=== PATIENT | male | born 1940 | race Caucasian/White ===

== ENCOUNTER → 2017-10-09 | Outpatient (CLI) | payer OTHER, MEDICARE | LOC: CIMAGING 11:01 | PROVIDERS: ATTEND Internal Medicine | DX: M25.552 Pain in left hip (principal); H91.90 Unspecified hearing loss, unspecified ear | CPT/HCPCS: 73502-PO ==

== ENCOUNTER → 2018-01-21 | Outpatient (CLI) | payer OTHER, MEDICARE | LOC: BHFA 13:30 | PROVIDERS: ATTEND Internal Medicine Cardiovascular Disease | DX: Z01.818 Encounter for other preprocedural examination (principal); I25.10 Atherosclerotic heart disease of native coronary artery without angina pectoris | CPT/HCPCS: 78452; 93017; A9500; J2785 ==

== ENCOUNTER → 2018-01-22 | Outpatient (CLI) | payer OTHER, MEDICARE | LOC: CIMAGING 11:13 | PROVIDERS: ATTEND Internal Medicine | DX: Z01.811 Encounter for preprocedural respiratory examination (principal); I51.7 Cardiomegaly | CPT/HCPCS: 36415-PO; 71046-PO ==

== ENCOUNTER 2018-01-29 10:38 | Observation (INO) | payer OTHER, MEDICARE ==
[2018-01-29] MEDS ORDERED: ceFAZolin 2 GM/DEXTROSE 100 ML IV ONE (11:57)
[2018-01-29] MEDS ORDERED: LIDOCAINE 1% 2 ML INJ ID PRN (11:57)
[2018-01-29] MEDS ORDERED: LR 1,000 ML IV ONE (11:57)
[2018-01-29] MEDS ORDERED: ACETAMINOPHEN 500 MG TAB PO ONE (11:57)
[2018-01-29] MEDS ORDERED: BUPIVACAINE 0.25% 30 ML SDV ONE (12:28)
[2018-01-29] MEDS ORDERED: THROMBIN (BOVINE) 20,000 UNIT VIAL TP ONE (12:28)
[2018-01-29] MEDS ORDERED: EPINEPHrine 1 MG/ML INJ ONE (12:28)
[2018-01-29] MEDS ORDERED: CHLORHEXIDINE GLUC HIBICLENS 118 ML BTL TP ONE (12:28)
[2018-01-29] MEDS ORDERED: BACITRACIN 50,000 UNITS/10 ML SYR IRR ONE (12:29)
--- NOTE | 2018-01-29 13:01 | PDANEPAE ---
ANE History of Present Illness patient presents for back surgery ANE Past Medical History - Cardiovascular History Hx Hypertension: Yes Hx Arrhythmias: No Hx Chest Pain: No Hx Coronary Artery / Peripheral Vascular Disease: Yes Hx CHF / Valvular Disease: No Hx Palpitations: No Cardiovascular History Comment: OHS 5. STENTS PLACED TO BYPASS GRAFT 2005 - Pulmonary History Hx COPD: No Hx Asthma/Reactive Airway Disease: No Hx Recent Upper Respiratory Infection: No Hx Oxygen in Use at Home: No Hx Sleep Apnea: No Sleep Apnea Screening Result - Last Documented: Positive - Neurologic History Hx Cerebrovascular Accident: No Hx Seizures: No Hx Dementia: No - Endocrine History Hx Diabetes: Yes Endocrine History Comment: TYPE 11 NIDDM - Renal History Hx Renal Disorders: No - Liver History Hx Hepatic Disorders: No - Neurological & Psychiatric Hx Hx Neurological and Psychiatric Disorders: Yes Neurological / Psychiatric History Comment: LEG MOVEMENT SPASM - Cancer History Hx Cancer: No - Congenital Disorder History Hx Congenital Disorders: No - GI History Hx Gastrointestinal Disorders: Yes Gastrointestinal History Comment: REFLUX - Other Health History Other Health History: RUNNY NOSE. DRY SKIN. CROWNS AND IMPLANTS - Chronic Pain History Chronic Pain: Yes (NECK PAIN) - Surgical History Prior Surgeries: OHS 2005 ANE Review of Systems Review of Systems: - Exercise capacity METS (RN): 4 METS ANE Patient History - Allergies Allergies/Adverse Reactions: amoxicillin Allergy (Verified 01/24/18 16:54) Other-Enter Comments NSAIDS (Non-Steroidal Anti-Inflamma Allergy (Verified 01/24/18 16:54) Other-Enter Comments - Home Medications Home medications: home medication list seen and reviewed Home Medications: Amlodipine Besylate 01/24/18 [Last Taken 01/28/18] Androgel 1% pump 01/24/18 [Last Taken 01/29/18] Carvedilol 01/24/18 [Last Taken 01/27/18] Losartan-Hctz 100-12.5 mg Tab 01/24/18 [Last Taken 01/29/18 06:00] Metformin HCl 01/24/18 [Last Taken 01/24/18] Pioglitazone HCl 01/24/18 [Last Taken 01/24/18] Ranitidine HCl 01/24/18 [Last Taken 01/29/18 06:00] Rosuvastatin Calcium 01/24/18 [Last Taken 01/24/18] - NPO status NPO Status: no food or drink >8 hours NPO Since - Liquids (Date): 01/28/18 NPO Since - Liquids (Time): 23:30 NPO Since - Solids (Date): 01/28/18 NPO Since - Solids (Time): 21:30 - Smoking Hx Smoking Status: Never smoked - Family Anes Hx Family Hx Anesthesia Complications: none ANE Labs/Vital Signs - Vital Signs Blood Pressure: 171/72 Heart Rate: 65 Respiratory Rate: 16 O2 Sat (%): 97 Height: 172.72 cm Weight: 77.111 kg ANE Physical Exam - Airway Neck exam: decreased ROM Mouth exam: normal dental/mouth exam - Pulmonary Pulmonary: no respiratory distress - Cardiovascular Cardiovascular: regular rate and rhythym - ASA Status ASA Status: III ANE Anesthesia Plan Anesthesia Plan: general endotracheal anesthesia Specialized Airway: video laryngoscope (rba discussed)
[2018-01-29] MEDS ORDERED: fentaNYL 100 MCG/2 ML INJ ONE ×2 (13:06→14:12)
[2018-01-29] MEDS ORDERED: PROPOFOL/EMULSION 500 MG/50 ML BOTTLE IV ONE (13:07)
[2018-01-29] MEDS ORDERED: REMIFENTANIL HCL 1 MG VIAL ONE (13:07)
[2018-01-29] MEDS ORDERED: ONDANSETRON 4 MG/2 ML VIAL ONE (13:07)
[2018-01-29] MEDS ORDERED: PROPOFOL 200 MG/20 ML VIAL ONE (13:07)
[2018-01-29] MEDS ORDERED: DEXAMETHASONE 4 MG/ML VIAL ONE (13:07)
--- NOTE | 2018-01-29 13:15 | PDHPUP ---
History & Physical Update H&P update statement: This history and physical update is based on an assessment of the patient which was completed after admission or registration (within 24 hours), but prior to the surgery/procedure. H&P update: H&P reviewed & patient examined, no change in patient's condition since H&P completed (Consents signed and site marked. All questions answered.)
[2018-01-29] MEDS ORDERED: SUCCINYLCHOLINE CHLORIDE 200 MG/10 ML SYR IVP ONE (13:23)
[2018-01-29] MEDS ORDERED: ePHEDrine SULFATE 25 MG/5 ML SYR ONE (13:48)
[2018-01-29] MEDS ORDERED: oxyCODONE IR 5 MG TAB PO PRN ×2 (14:30→14:51)
[2018-01-29] MEDS ORDERED: NALOXONE HCL 0.4 MG/ML INJ IVP PRN (14:30)
[2018-01-29] MEDS ORDERED: HYDROCODONE/APAP 5/325 TAB PO PRN (14:30)
[2018-01-29] MEDS ORDERED: LR 500 ML IV PRN (14:30)
[2018-01-29] MEDS ORDERED: ONDANSETRON 4 MG/2 ML VIAL IVP PRN ×2 (14:30→14:51)
[2018-01-29] MEDS ORDERED: fentaNYL 100 MCG/2 ML INJ IVP PRN (14:30)
[2018-01-29] MEDS ORDERED: POLYETHYLENE GLYCOL 3350 17 GM PKT PO PRN (14:51)
[2018-01-29] MEDS ORDERED: diphenhydrAMINE 25 MG CAP PO PRN (14:51)
[2018-01-29] MEDS ORDERED: MAGNESIUM HYDROXIDE 30 ML UDCUP PO PRN (14:51)
[2018-01-29] MEDS ORDERED: LACTULOSE 20 GM/30 ML UDCUP PO PRN (14:51)
[2018-01-29] MEDS ORDERED: BISACODYL 10 MG SUPP PR PRN (14:51)
[2018-01-29] MEDS ORDERED: HYDROmorphONE/DILAUDID 1 MG/ML INJ IVP PRN (14:51)
[2018-01-29] MEDS ORDERED: METHOCARBAMOL 750 MG TAB PO PRN (14:51)
[2018-01-29] MEDS ORDERED: ONDANSETRON DISINTEGRATING 4 MG TAB PO PRN (14:51)
--- NOTE | 2018-01-29 14:58 | POSTOPPROG ---
Post Op Note Date of Operation: 01/29/18 Surgeon: Genia Hyatt Steam Tank Operator: Kayleen Hyatt PA-C Anesthesiologist: Reagan Anesthesia: GET(General Endotracheal) Pre-op Diagnosis: lumbar stenosis Post-op Diagnosis: same Indication: nerve compression Procedure: L4/5 hemilaminectomy and decompression Findings: nerve compression Inf/Abcess present in the surg proc area at time of surgery?: No Depth: Organ Space EBL: Minimal Complications: none Specimen(s): none PA Addendum - Addendum .: S: Pt awake in PACU, denies pain O: Sleepy but awakens easily NAD VSS MAEx4 Motor 5/5 BUE/BLE +LT Incision dressed cdi A: 77 yo M s/p L4/5 hemilaminectomy and decompression P: PT/OT Pain management Spine precautions TEDs, SCDs, lovenox 24 hrs post op Admit to obs due to cardiac issues, likely DC in am D/w Dr Esquivel Call NS with any issues
[2018-01-29] MEDS ORDERED: NS 1,000 ML IV SCH (15:00)
--- NOTE | 2018-01-29 15:04 | POSTANESTH ---
Post Anesthetic Evaluation Cardiovascular Status: Similar to Pre-Op Cond Respiratory Status: Similar to Pre-op Cond. Level of Consciousness/Mental Status: Mildly Sleepy, Arousable Pain Control: Adequate, Prn Tx Ordered Nausea/Vomiting Control: Adequate, Prn Tx Ordered Complications Possibly Related to Anesthesia: None Noted
--- NOTE | 2018-01-29 17:21 | GOP ---
[f rep st] OPERATIVE REPORT DATE OF OPERATION: 01/29/2018 SURGEON: Triston Esquivel MD PLASTERER HELPER: FRANCES Mathews ANESTHESIA: General. PREOPERATIVE DIAGNOSIS: 1. L4-5 lumbar stenosis with left lower extremity radiculopathy. 2. Treatment refractory to nonoperative intervention. POSTOPERATIVE DIAGNOSIS: 1. L4-5 lumbar stenosis with left lower extremity radiculopathy. 2. Treatment refractory to nonoperative intervention. PROCEDURE PERFORMED: 1. Left-sided L4-L5 hemilaminotomy with mesial facetectomy and lateral recess decompression with central decompression. 2. Use of intraoperative fluoroscopy, less than 1 hour physician time. 3. Use of neuromonitoring. 4. Use of operating microscope. FINDINGS: per imaging SPECIMENS: None. ESTIMATED BLOOD LOSS: 20 cc. INDICATIONS: The patient is a 77-year-old gentleman who has unfortunately suffers from left lower extremity radiculopathy with claudicatory symptoms. He had evidence of severe spinal stenosis L4-L5. After discussion of the risks, benefits, and alternatives. After failing nonoperative intervention, we decided to proceed forth with surgery as described above. DESCRIPTION OF PROCEDURE: The patient was brought to operating theater and underwent general endotracheal anesthesia without complications. He had Venodynes, HUMPHREY hose, and the appropriate lines placed by Anesthesia. He was flipped prone on the Veto frame, and all bony processes inspected and padded. The lower lumbar region was prepped and draped in usual sterile surgical fashion. A time-out was completed per protocol, and the patient received antibiotics within 1 hour of incision. Using lateral fluoroscopy and a spinal needle, we picked our entry point to the L4-L5 level. This was marked in the midline and the incision infiltrated with Marcaine with epinephrine. The incision was taken down with the scalpel blade and using monopolar, taken down the midline to the lumbodorsal fascia to the left side of the L4-L5 interlaminar space. Deep retractors were placed to maintain exposure. We confirmed our level using lateral fluoroscopy. The microscope was brought into the field to assist with microscopic dissection and to maintain illumination and magnification. Using a combination of bur tip on the drill bit and Kerrison punches, we completed a left-sided L4-5 hemilaminotomy with mesial facetectomy and lateral recess decompression. We also resected the ligamentum flavum and reached crossed the midline with the banana Kerrison and completed a central decompression. We complete this cranial and caudally until we felt that we decompressed the stenotic levels that was compared to his MRI scan. Once this was completed, we obtained hemostasis with the bipolar. The wound was irrigated copiously with bacitracin irrigation. We then closed the wound in multiple layers, including Vicryl sutures deep layers and Dermabond for the skin. Patient's wounds were dressed sterilely. He was flipped supine onto the transfer cart, where he was awakened, extubated, and taken to recovery room in stable condition. There were no complications and no noted changes on neuromonitoring throughout the procedure. COMPLICATIONS: None. /[id number]/MODL MTDD
[2018-01-29] MEDS: SENNOSIDES/DOCUSATE SODIUM TAB PO SCH (20:47)
[2018-01-29] MEDS: FAMOTIDINE 20 MG TAB PO SCH (20:47)
[2018-01-29] MEDS: ACETAMINOPHEN 500 MG TAB PO SCH (23:34)
[2018-01-30] MEDS: ACETAMINOPHEN 500 MG TAB PO SCH (06:39)
--- NOTE | 2018-01-30 07:47 | NEUSURGPN ---
Date of Surgery: 01/29/18 Post Op Day: 1 Assessment/Plan: Assessment: 77 yo M s/p L4/5 hemilaminectomy and decompression POD #1 Plan: -s/p lumbar decompression: Pt states that his pain is better and his legs feel "great" -will work with PT/OT this am and likely dc if they clear -dc pended clearance for therapies and RN -continue with current pain management -call with any questions or concerns -TEDs, SCDs, lovenox 24 hrs post op if not ambulation well -was admitted to obs due to cardiac issues-did "fine" overnight per DORYS Jimenes -d/w Dr Esquivel -call NS with any issues -warning signs given Subjective: Awake and alert. No new complaints. Doing well this am. No omalley/neck/chest/abd or gu complaints. No f/c/n/v/d. Objective: AAO x 3, PERRLA/EOMI no droop NAD AFVSS MAEx4 Motor 5/5 BUE/BLE = +LT Incision dressed CDI Neuro Check Frequency: per routine Urinary Catheter in Place: No - Physician Discussed Patient with : [facility] Physical Exam - Vitals, I&O, Labs I and O 01/29/18 01/30/18 01/31/18 05:59 05:59 05:59 Intake Total 250 Output Total 580 Balance -330 Weight 77.111 kg Intake: Oral (ml) 250 Output: Urine (ml) 570 Urinal 570 Estimated Blood Loss (ml) 10 Other: Number of Voids Urinal 1 Vital Signs Temp Pulse Resp BP Pulse Ox 36.6 C 62 16 132/65 H 95 01/30/18 07:35 01/30/18 07:35 01/30/18 07:35 01/30/18 07:35 01/30/18 07:35 ICD10 Worksheet Patient Problems: Problems Problem Status Onset Lumbar stenosis Acute - ICD10 Problem Qualifiers (1) Lumbar stenosis
[2018-01-30] MEDS: FAMOTIDINE 20 MG TAB PO SCH (08:09)
[2018-01-30] MEDS: SENNOSIDES/DOCUSATE SODIUM TAB PO SCH (08:09)
[2018-01-30] MEDS ORDERED: HYDROCORTISONE 1% CREAM TP PRN (08:45)
[2018-01-30] MEDS ORDERED: VITAMIN B COMPLEX 1 EA CAP/TAB PO SCH (09:00)
[2018-01-30] MEDS ORDERED: CARVEDILOL 25 MG TAB PO SCH (09:00)
[2018-01-30] MEDS ORDERED: Herbals/Supplements -Info Only PO SCH (09:00)
[2018-01-30] MEDS ORDERED: TESTOSTERONE 1.62% TP SCH (09:00)
[2018-01-30] MEDS ORDERED: LOSARTAN POTASSIUM 50 MG TAB PO SCH (09:00)
[2018-01-30] MEDS ORDERED: LOSARTAN PO SCH (09:00)
[2018-01-30] MEDS ORDERED: [UNRECOGNIZED DRUG - OTHER] PO SCH (09:00)
[2018-01-30] MEDS ORDERED: CHOLECALCIFEROL VIT D3 1,000 UNITS TAB PO SCH (09:00)
[2018-01-30] MEDS ORDERED: HYDROCHLOROTHIAZIDE PO SCH (09:00)
[2018-01-30] MEDS ORDERED: LOSARTAN/HCTZ 50/12.5 1 TAB PO SCH (09:00)
[2018-01-30] MEDS ORDERED: PRESERVISION AREDS2 FORMULA EYE VIT 1 EACH PO SCH (09:00)
[2018-01-30] MEDS ORDERED: PIOGLITAZONE HCL 15 MG TAB PO SCH (09:45)
[2018-01-30] MEDS ORDERED: IPRATROPIUM 0.06% NASAL SPRAY EACHNARE SCH (10:00)
[2018-01-30 10:51] VITALS: BP 139/56
[2018-01-30] MEDS ORDERED: PYRIDOXINE HCL 100 MG TAB PO SCH (12:00)
[2018-01-30] MEDS ORDERED: CYANO/VITAMIN B12 1000 MCG TAB PO SCH (12:00)
[2018-01-30] MEDS ORDERED: metFORMIN SR 500 MG TAB PO SCH (12:00)
--- NOTE | 2018-01-30 13:42 | ASMTCMCOM ---
CM Note CM Note Notes: PT rec home. Pt medically stable for d/c, no CM d/c needs identified. Date Signed: 01/30/2018 01:42 PM Electronically Signed By:IBRAHIMA Friedman
--- NOTE | 2018-01-30 13:42 | ASMTLACE ---
LACE Length of stay for Answers: 2 days current admission Acuity / Level of Answers: No Care: Did the patient have an inpatient admission? Comorbidities - select Answers: Coronary Artery Disease all that apply Diabetes (uncontrolled or controlled) Opioid dependence / Chronic pain Other Notes: HTN # of Emergency department Answers: 0 visits in the last 6 months Score: 10 Date Signed: 01/30/2018 01:41 PM Electronically Signed By:IBRAHIMA Friedman
[2018-01-30] MEDS ORDERED: ENOXAPARIN 40 MG/0.4 ML SYR SC SCH (14:00)
[2018-01-30] MEDS ORDERED: ROSUVASTATIN CALCIUM 10 MG TAB PO SCH (21:00)
[2018-01-30] MEDS ORDERED: MELATONIN 3 MG TAB PO SCH (21:00)
[2018-01-31] MEDS ORDERED: FAMOTIDINE 20 MG TAB PO SCH (07:00)
--- NOTE | 2018-02-12 13:20 | GDS ---
[f rep st] DISCHARGE SUMMARY ADMITTING DIAGNOSIS: Lumbar stenosis. DISCHARGE DIAGNOSIS: Status post L4-5 hemilaminectomy and decompression. CONSULTS: Physical Therapy, Occupational Therapy. DISPOSITION: Home. HOSPITAL COURSE: The patient is a 77-year-old patient who was seen in Dr. Esquivel's clinic as an outp atient. He had lumbar stenosis at the L4-5 level with symptoms including left lower extremity radicu lopathy and claudicatory symptoms. He tried and failed conservative management and after careful con sideration, elected to proceed with surgery in the way of left-sided L4-5 hemilaminotomy with lateral recess decompression and central decompression. The procedure was performed by Dr. Esquivel for which there were no known complications. Please see his operative report for further details. After the operation, the patient was in stable condition and was transferred to the operating room to the PACU and from the PACU to the postsurgical floor. While on the floor, the patient received physical thera py, occupational therapy, and pain management. On postop day #1, the patient's pain was well managed . He was cleared by therapies, and he was subsequently discharged to home. DISCHARGE INSTRUCTIONS: Diet: As tolerated. Activity: No bending, lifting, or twisting. The aneesh ent to keep his incision clean and dry. MEDICATIONS: Please see the medication reconciliation. FOLLOWUP: The patient has been asked to follow up with Dr. Esquivel in the office in approximately 2-3 weeks. We have asked the patient to call sooner with any questions or concerns at [phone]. /[id number]/MODL
--- NOTE | 2018-02-12 13:35 | GPROG ---
[f rep st] CONSULTATION This is to dictate the order for discharge for this patient. /[id number]/MODL
== END 2018-01-30 11:34 | disposition home or self-care (01) ==
LOC: FSGY 10:38 → F3N 14:51
PROVIDERS: ADMIT Neurological Surgery; ATTEND Neurological Surgery
PROC: 0SB20ZZ Excision of Lumbar Vertebral Disc, Open Approach (ICD-10-PCS; principal; 2018-01-29 13:15)
PROC: 00NY0ZZ Release Lumbar Spinal Cord, Open Approach (ICD-10-PCS; principal; 2018-01-29 13:15)
DX: M48.062 Spinal stenosis, lumbar region with neurogenic claudication (principal)
CPT/HCPCS: 63030; 76001; 97116; 97161; 97165; 97535; G8978; G8979; G8980; G8987; G8988; G8989; J0171; J0330; J0690; J1100; J2405; J2704; J3010; 80069-PO; 80076-PO

== ENCOUNTER 2018-03-05 14:22 | Observation (INO) | payer OTHER, MEDICARE ==
--- NOTE | 2018-03-05 14:50 | CPEKG ---
Test Reason : OPEN Blood Pressure : / mmHG Vent. Rate : 059 BPM Atrial Rate : 059 BPM P-R Int : 188 ms QRS Dur : 086 ms QT Int : 434 ms P-R-T Axes : 026 019 151 degrees QTc Int : 430 ms Sinus rhythm Low voltage, extremity leads Abnormal T, consider ischemia, lateral leads Confirmed by Jose Carlos Boykin ([id number]) on 03/05/2018 2:50:17 PM Referred By: Confirmed By:Jose Carlos Boykin
[2018-03-05] MEDS ORDERED: FUROSEMIDE 40 MG/4 ML VIAL IVP ONE (14:58)
--- NOTE | 2018-03-05 15:02 | EDPHY ---
H & P Stated Complaint: bypass surg 01/29 cva 02/02 increasing fluid retention with sob with exertion Time Seen by Provider: 03/05/18 14:44 HPI/ROS: CHIEF COMPLAINT: Shortness of breath HISTORY OF PRESENT ILLNESS: The patient is a 77-year-old man who comes to the emergency department complaining of shortness of breath with exertion and mild orthopnea. He has a history of 5 vessel CABG and mild CHF. 1 month ago he had a lumbar laminectomy and his a Plavix was held. 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 He was treated at [facility] with perfusion therapy. He was not eligible for tPA or intra-arterial lysis. Because of the perfusion therapy they discontinued his losartan/ hydrochlorothiazide. His stroke improved and he was discharged but his medication was not resumed. He states that over the last couple of weeks he has gained 2 lb and has swelling in his legs and shortness of breath with exertion. No fever or cough. No chest pain. He also has a history of diabetes. His wind operations manager is Dr. Reji Ochoa and his primary is Dr. Tim York. He presented to the cardiology office today to have his loop recorder evaluated and was planning to ask about the medications but unfortunately the wind operations manager was not in the office. Severity: Mild Modifying factors: Exertion , lying flat REVIEW OF SYSTEMS: Constitutional: denies: chills, fever, recent illness, recent injury EENTM: denies: blurred vision, double vision, nose congestion Respiratory: See HPI denies: cough Cardiac: denies: chest pain, irregular heart rate, lightheadedness, palpitations Gastrointestinal/Abdominal: denies: abdominal pain, diarrhea, nausea, vomiting, blood streaked stools Genitourinary: denies: dysuria, frequency, hematuria, pain Musculoskeletal: denies: joint pain, muscle pain Skin: denies: lesions, rash, jaundice, bruising Neurological: denies: headache, numbness, paresthesia, tingling, dizziness, weakness Hematologic/Lymphatic: denies: blood clots, easy bleeding, easy bruising Immunologic/allergic: denies: HIV/AIDS, transplant EXAM: GENERAL: Well-appearing, well-nourished and in no acute distress. HEAD: Atraumatic, normocephalic. EYES: Pupils equal round and reactive to light, extraocular movements intact, sclera anicteric, conjunctiva are normal. ENT: TMs normal, nares patent, oropharynx clear without exudates. Moist mucous membranes. NECK: Normal range of motion, supple without lymphadenopathy or JVD. LUNGS: Breath sounds her with mild crackles to auscultation bilaterally and equal. No wheezes rales or rhonchi. HEART: Regular rate and rhythm without murmurs, rubs or gallops. ABDOMEN: Soft, nontender, normoactive bowel sounds. No guarding, no rebound. No masses appreciated. BACK: No CVA tenderness, no spinal tenderness, step-offs or deformities EXTREMITIES: The 1+ lower extremity edema, Normal range of motion. No clubbing or cyanosis. NEUROLOGICAL: Cranial nerves II through XII grossly intact. Normal speech, normal gait. 5/5 strength, normal movement in all extremities, normal sensation , normal reflexes PSYCH: Normal mood, normal affect. SKIN: Warm, dry, normal turgor, no visible rashes or lesions. Source: Patient Exam Limitations: No limitations - Personal History Current Tetanus Diphtheria and Acellular Pertussis (TDAP): Yes - Medical/Surgical History Hx Asthma: No Hx Chronic Respiratory Disease: No Hx Diabetes: Yes Hx Cardiac Disease: Yes Hx Renal Disease: No Hx Cirrhosis: No Hx Alcoholism: No Hx HIV/AIDS: No Hx Splenectomy or Spleen Trauma: No Other PMH: CABG with 5 stents, HTN, DM, cva has loop monitor - Family History Significant Family History: No pertinent family hx - Social History Smoking Status: Never smoked Alcohol Use: Sober Drug Use: None Constitutional: Initial Vital Signs Temperature (C) 36.4 C 03/05/18 14:26 Heart Rate 65 03/05/18 14:26 Respiratory Rate 18 03/05/18 14:26 Blood Pressure 155/79 H 03/05/18 14:26 O2 Sat (%) 95 03/05/18 14:26 O2 Delivery Mode Room Air Allergies/Adverse Reactions: amoxicillin Allergy (Verified 03/05/18 14:23) Other-Enter Comments NSAIDS (Non-Steroidal Anti-Inflamma Allergy (Verified 03/05/18 14:23) Other-Enter Comments Home Medications: Medication Instructions Recorded Androgel 1.62% 1 nghia TP DAILY 01/29/18 C,E,Zinc,Copper 11/Gnbrf5s/Lut 1 each PO DAILY 01/29/18 [Ocuvite Adult 50 Plus Softgel] Carvedilol [Coreg] 12.5 mg PO BID 01/29/18 Cholecalciferol Vit D3 [Vitamin D3 1,000 units PO DAILY 01/29/18 (*)] Cyanocobalamin [Vitamin B12 (*)] 1,000 mcg PO DAILY@01/29/18 Herbals/Supplements -Info Only 1 ea PO DAILY 01/29/18 Ipratropium 0.06% Nasal [Atrovent 1 sprays EACHNARE DAILY@01/29/18 0.06% Nasal] Melatonin [Melatonin 3 MG (*)] 3 mg PO DAILY@01/29/18 Pyridoxine HCl [Vitamin B-6 100 mg 100 mg PO DAILY@01/29/18 (*)] Rosuvastatin Calcium [Crestor] 10 mg PO HS 01/29/18 Vitamin B Complex [Vitamin B 1 each PO DAILY 01/29/18 Complex (OTC)] amLODIPine BESYLATE [Norvasc 2.5 2.5 mg PO HS 01/29/18 mg (*)] metFORMIN SR [Glucophage XR 500 mg 500 mg PO QID 01/29/18 (*)] Acetaminophen [Tylenol ES 500 mg 1,000 mg PO Q8HRS tab 01/30/18 (*)] Aspirin EC [Aspirin EC 81 mg (*)] 81 mg PO TID 02/19/18 Clopidogrel Bisulfate [Clopidogrel] 75 mg PO DAILY 02/19/18 Losartan Potassium 100 mg PO DAILY 03/05/18 Hydrochlorothiazide [HCTZ (*)] 12.5 mg PO DAILY #30 tab 03/06/18 Medical Decision Making - Diagnostics EKG Interpretation: An EKG obtained and was read and documented in trace view. Please see trace view for full reading and report. Sinus rhythm, no acute ischemic changes, T- wave inversion laterally no previous for comparison Imaging: Discussed imaging studies w/ physically impaired teacher Radiologist ED Course/Re-evaluation: 4:00 p.m. the patient is feeling slightly better. He is ambulating to the bathroom. I discussed his case with Dr. Burden who is on-call for Dr. Ochoa. He would prefer the patient be admitted to the hospital for diuresis and observation. Patient and family understand and agree with this plan. Differential Diagnosis: Partial list of the Differential diagnosis considered include but were not limited to; CHF exacerbation, pleural effusion, pericardial effusion and although unlikely based on the history and physical exam, I also considered acute coronary disease, PE. I discussed these differential diagnoses and the plan with the patient as well as the usual and expected course. The patient understands that the diagnosis is provisional and that in medicine we are not always correct and that further workup is often warranted. Usual and customary warnings were given. All of the patient's questions were answered. The patient was instructed to return to the emergency department should the symptoms at all worsen or return, otherwise to followup with the physician as we discussed. - Data Points Laboratory Results: Laboratory Results 03/05/18 14:35 03/05/18 14:35 Medications Given: Discontinued Medications Acetaminophen (Tylenol) 1,000 mg PO Q8HRS ROSELINE Stop: 09/01/18 21:59 Last Admin: 03/06/18 08:29 Dose: Not Given Amlodipine Besylate (Norvasc) 2.5 mg PO HS ROSELINE Stop: 09/01/18 20:59 Last Admin: 03/05/18 22:34 Dose: Not Given Aspirin Buffered (Aspirin Ec) 81 mg PO DAILY ROSELINE Stop: 09/02/18 08:59 Last Admin: 03/06/18 08:25 Dose: 81 mg Carvedilol (Coreg) 12.5 mg PO BIDMEAL ROSELINE Stop: 09/01/18 20:29 Last Admin: 03/06/18 08:26 Dose: 12.5 mg Cholecalciferol (Vitamin D) 1,000 units PO DAILY ROSELINE Stop: 09/02/18 08:59 Last Admin: 03/06/18 08:26 Dose: 1,000 units Clopidogrel Bisulfate (Plavix) 75 mg PO DAILY ROSELINE Stop: 09/02/18 08:59 Last Admin: 03/06/18 08:25 Dose: 75 mg Enoxaparin Sodium (Lovenox) 40 mg SC DAILY ROSELINE Stop: 09/02/18 08:59 Last Admin: 03/06/18 08:25 Dose: 40 mg Furosemide (Lasix Injection) 20 mg IVP EDNOW ONE Stop: 03/05/18 14:59 Last Admin: 03/05/18 15:03 Dose: 20 mg Furosemide (Lasix Injection) 20 mg IVP BIDDIUR ROSELINE Stop: 09/02/18 08:59 Last Admin: 03/06/18 08:26 Dose: 20 mg Ipratropium [place] (Atrovent 0.06% Nasal) 1 sprays EACHNARE DAILY@10 ROSELINE Stop: 09/02/18 09:59 Last Admin: 03/06/18 11:33 Dose: Not Given Losartan Potassium (Cozaar) 100 mg PO DAILY ROSELINE Stop: 09/02/18 08:59 Last Admin: 03/06/18 08:25 Dose: 100 mg Melatonin (Melatonin) 3 mg PO DAILY@21 ROSELINE Stop: 09/01/18 20:59 Last Admin: 03/05/18 22:33 Dose: Not Given Metformin HCl (Glucophage Xr) 500 mg PO 0800,1200,1600,1800 ROSELINE Stop: 09/02/18 07:59 Last Admin: 03/06/18 12:12 Dose: 500 mg Miscellaneous Medication (Androgel 1.62%) 1 nghia TP DAILY ROSELINE Stop: 09/02/18 08:59 Last Admin: 03/06/18 10:06 Dose: Not Given Multivitamins/Minerals (Preservision Areds2 Formula) 1 each PO DAILY ROSELINE Stop: 09/02/18 08:59 Last Admin: 03/06/18 08:25 Dose: 1 each Pyridoxine HCl (Vitamin B-6) 100 mg PO DAILY@12 ROSELINE Stop: 09/02/18 11:59 Last Admin: 03/06/18 12:12 Dose: 100 mg Rosuvastatin Calcium (Crestor) 10 mg PO HS ROSELINE Stop: 09/01/18 20:59 Last Admin: 03/05/18 22:33 Dose: Not Given Vitamin B Complex (Vitamin B12) 1,000 mcg PO DAILY@12 ROSELINE Stop: 09/02/18 11:59 Last Admin: 03/06/18 12:12 Dose: 1,000 mcg Vitamin B Complex (Vitamin B Complex) 1 ea PO DAILY ROSELINE Stop: 09/02/18 08:59 Last Admin: 03/06/18 08:26 Dose: 1 ea Point of Care Test Results: Chemistry 03/05/18 14:48 POC Troponin I 0.02 ng/mL ng/mL (0.00-0.08) Departure - Departure Disposition: [facility] Acute Clinical Impression: Pleural effusion, Shortness of breath Condition: Fair
[2018-03-05 15:06] LABS: PLATELET COUNT 172 10^3/uL (150-400)
[2018-03-05 15:17] LABS: PROTIME(PATIENT) 13.4 SEC (12.0-15.0)
[2018-03-05] MEDS ORDERED: ONDANSETRON DISINTEGRATING 4 MG TAB PO PRN (20:16)
[2018-03-05] MEDS ORDERED: ONDANSETRON 4 MG/2 ML VIAL IVP PRN (20:16)
[2018-03-05] MEDS ORDERED: ACETAMINOPHEN 325 MG TAB PO PRN (20:16)
--- NOTE | 2018-03-05 20:24 | PDGENHP ---
History and Physical - Chief Complaint Acute dyspnea on exertion - History of Present Illness Primary care provider: Dr. Jh York Primary ramp flight attendant: Dr. Reji Ochoa HPI: 77-year-old male presents with acute dyspnea on exertion with associated weight gain, edema located in his bilateral lower extremities, audible wheezing , husky voice, with onset of symptoms approximately 2 weeks ago and duration persistent thereafter. He reports that the shortness of breath is exacerbated with physical ambulation as well as lying supine. He reports that prior to onset of symptoms, he had otherwise been able to ambulate approximately 100 yd, and after symptoms began, he is only able to ambulate half that much before he gets significantly short of breath. He denies any overt chest pain and reports that he has been experiencing polyuria since receiving 20 mg of IV Lasix in the emergency department. His symptoms have begun in the context of undergoing a lumbar surgery on 2017, complicated by a subsequent MCA CVA, treated at [facility]. During his CVA hospitalization, he received IV fluids, and his losartan/ hydrochlorothiazide was discontinued. He was discharged from that hospitalization with instructions to resume his losartan, but continue holding his diuretic. He was also advised to increase his aspirin from 81 mg daily to aspirin 325 daily as well as continue his Plavix 75 daily. Since discharging home, the patient reports that his CVA deficit (dysarthria), has subsided. However, the patient has begun experiencing significant epigastric discomfort, particularly at night, despite adhering to his scheduled ranitidine therapy. Consequently, he has reduced his aspirin from 325 once daily to81 mg 3 times daily. Although this has resulted in improvement in his epigastric discomfort, he continues to experience epigastric discomfort at night. History Information - Allergies/Home Medication List Allergies/Adverse Reactions: amoxicillin Allergy (Verified 03/05/18 14:23) Other-Enter Comments NSAIDS (Non-Steroidal Anti-Inflamma Allergy (Verified 03/05/18 14:23) Other-Enter Comments Home Medications: Androgel 1.62% 1 nghia TP DAILY 01/29/18 [Last Taken 03/05/18] C,E,Zinc,Copper 11/Pbgbn2p/Lut [Ocuvite Adult 50 Plus Softgel] 1 each PO DAILY 01/29/18 [Last Taken 03/05/18] Carvedilol [Coreg] 12.5 mg PO BID 01/29/18 [Last Taken 03/05/18] Cholecalciferol Vit D3 [Vitamin D3 (*)] 1,000 units PO DAILY 01/29/18 [Last Taken 03/05/18] Cyanocobalamin [Vitamin B12 (*)] 1,000 mcg PO DAILY@01/29/18 [Last Taken ] Herbals/Supplements -Info Only 1 ea PO DAILY 01/29/18 [Last Taken Unknown] Ipratropium 0.06% Nasal [Atrovent 0.06% Nasal] 1 sprays EACHNARE DAILY@ [Last Taken 01/28/18] Melatonin [Melatonin 3 MG (*)] 3 mg PO DAILY@01/29/18 [Last Taken 03/04/18] Pioglitazone HCl [Actos 15mg (*)] 15 mg PO BID@01/29/18 [Last Taken ] Pyridoxine HCl [Vitamin B-6 100 mg (*)] 100 mg PO DAILY@01/29/18 [Last Taken 03/05/18] Rosuvastatin Calcium [Crestor] 10 mg PO HS 01/29/18 [Last Taken 03/04/18] Vitamin B Complex [Vitamin B Complex (OTC)] 1 each PO DAILY 01/29/18 [Last Taken 03/05/18] amLODIPine BESYLATE [Norvasc 2.5 mg (*)] 2.5 mg PO HS 01/29/18 [Last Taken 03/04] metFORMIN SR [Glucophage XR 500 mg (*)] 500 mg PO QID 01/29/18 [Last Taken 03/05 16:00] Aspirin EC [Aspirin EC 81 mg (*)] 81 mg PO TID 02/19/18 [Last Taken 03/05/18] Clopidogrel Bisulfate [Clopidogrel] 75 mg PO DAILY 02/19/18 [Last Taken 03/05/18 ] Losartan Potassium 100 mg PO DAILY 03/05/18 [Last Taken 03/05/18] I have personally reviewed and updated: family history, medical history, social history, surgical history - Past Medical History 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 Coronary artery disease. Lumbar stenosis. Chronotropic incompetence with peak heart rate of 80 , resting heart rate between 50 and 60 - Surgical History Additional surgical history: L4-L5 surgery on 01/29/2018. Loop recorder placed . CABG 2004. PCI x3 vessel in 2005 - Family History Additional family history: No family history of venous thromboembolism or end- stage renal disease - Social History Smoking Status: Never smoked Alcohol Use: Sober Drug Use: None Additional social history: Physically active at baseline, normally able to ambulate 100 yd without shortness of breath, currently only able to ambulate 50 Review of Systems Review of Systems: ROS: 10pt was reviewed & negative except for what was stated in HPI & below Cardiac: Reports: edema Respiratory: Reports: orthopnea, shortness of breath, wheezing Physical Exam Physical Exam: Temp Pulse Resp BP Pulse Ox 36.9 C 68 17 162/81 H 95 03/05/18 20:00 03/05/18 20:00 03/05/18 20:00 03/05/18 20:00 03/05/18 20:00 Constitutional: no apparent distress, appears nourished, not in pain Eyes: PERRL, anicteric sclera, EOMI Ears, Nose, Mouth, Throat: moist mucous membranes, hearing normal, ears appear normal, no oral mucosal ulcers Cardiovascular: systolic murmur (1/6 at the sternum and apex), JVD, bradycardia , edema (1+ bilateral lower extremity), No irregularly irregular Respiratory: reduced air movement (Right base), inspiratory crackles (Left base) , other (Crackles do not clear with cough), No expiratory wheeze, No bronchial breath sounds, No respiratory distress Gastrointestinal: normoactive bowel sounds, soft, non-tender abdomen, no palpable masses, No guarding, No distension Skin: warm, No abrasion, No rash Neurologic: AAOx3, sensation intact bilaterally, No weakness Psychiatric: interacting appropriately, not anxious, not encephalopathic, thought process linear Lab Data & Imaging Review 03/05/18 14:35 03/05/18 14:35 WBC 4.52 10^3/uL (3.80-9.50) 03/05/18 14:35 RBC 4.06 10^6/uL (4.40-6.38) L 03/05/18 14:35 Hgb 12.2 g/dL (13.7-17.5) L 03/05/18 14:35 Hct 36.1 % (40.0-51.0) L 03/05/18 14:35 MCV 88.9 fL (81.5-99.8) 03/05/18 14:35 MCH 30.0 pg (27.9-34.1) 03/05/18 14:35 MCHC 33.8 g/dL (32.4-36.7) 03/05/18 14:35 RDW 17.5 % (11.5-15.2) H 03/05/18 14:35 Plt Count 172 10^3/uL (150-400) 03/05/18 14:35 MPV 10.8 fL (8.7-11.7) 03/05/18 14:35 Neut % (Auto) 50.9 % (39.3-74.2) 03/05/18 14:35 Lymph % (Auto) 31.4 % (15.0-45.0) 03/05/18 14:35 [place] % (Auto) 13.3 % (4.5-13.0) H 03/05/18 14:35 Eos % (Auto) 3.3 % (0.6-7.6) 03/05/18 14:35 Baso % (Auto) 0.9 % (0.3-1.7) 03/05/18 14:35 Nucleat RBC Rel Count 0.0 % (0.0-0.2) 03/05/18 14:35 Absolute Neuts (auto) 2.30 10^3/uL (1.70-6.50) 03/05/18 14:35 Absolute Lymphs (auto) 1.42 10^3/uL (1.00-3.00) 03/05/18 14:35 Absolute Monos (auto) 0.60 10^3/uL (0.30-0.80) 03/05/18 14:35 Absolute Eos (auto) 0.15 10^3/uL (0.03-0.40) 03/05/18 14:35 Absolute Basos (auto) 0.04 10^3/uL (0.02-0.10) 03/05/18 14:35 Absolute Nucleated RBC 0.00 10^3/uL (0-0.01) 03/05/18 14:35 Immature Gran % 0.2 % (0.0-1.1) 03/05/18 14:35 Immature Gran # 0.01 10^3/uL (0.00-0.10) 03/05/18 14:35 PT 13.4 SEC (12.0-15.0) 03/05/18 14:35 INR 1.00 (0.83-1.16) 03/05/18 14:35 APTT 33.7 SEC (23.0-38.0) 03/05/18 14:35 Sodium 136 mEq/L (135-145) 03/05/18 14:35 Potassium 4.3 mEq/L (3.3-5.0) 03/05/18 14:35 Chloride 102 mEq/L (97-110) 03/05/18 14:35 Carbon Dioxide 23 mEq/l (22-31) 03/05/18 14:35 Anion Gap 11 mEq/L (8-16) 03/05/18 14:35 BUN 18 mg/dL (7-23) 03/05/18 14:35 Creatinine 0.9 mg/dL (0.7-1.3) 03/05/18 14:35 Estimated GFR > 60 03/05/18 14:35 Glucose 189 mg/dL (70-100) H 03/05/18 14:35 Calcium 9.7 mg/dL (8.5-10.4) 03/05/18 14:35 POC Troponin I 0.02 ng/mL (0.00-0.08) 03/05/18 14:48 NT-Pro-B Natriuret Pep 1450 pg/mL (0-450) H 03/05/18 14:35 Visualized and Interpreted Chest x-ray results: Yes Chest X-Ray results: other (Right-sided effusion with atelectasis) Visualized and Interpreted EKG results: Yes EKG Interpretation: Positive for: other (Normal sinus rhythm with T-wave inversion in V5, V6, 1) Assessment & Plan Assessment: 77-year-old male presenting with acute diastolic CHF exacerbation Plan: 1. Acute diastolic CHF exacerbation. New problem this provider, further workup indicated. Evidenced by new pleural effusion on chest x-ray, crackles on physical exam, BNP of 1450, recent weight gain with physical exam demonstrating peripheral edema -most likely secondary to his most recent hospitalizations including surgery as well as CVA with "reperfusion" treatment resulting in fluid accumulation as well as discontinuation of his home diuretic, resulting in suboptimally controlled blood pressure -order outside records from [facility], including most recent echo and stress test results -reviewed outside records from preoperative evaluation by Dr. Reji Ochoa from , he mentions a preoperative stress test, which the patient performed -good response to IV Lasix received in emergency department, continue Lasix 20 mg IV twice daily, and consider transitioning to oral for outpatient management beginning tomorrow depending on response -monitor strict I&Os, daily weights -monitor electrolytes -recommend immediate outpatient follow-up with Dr. Ochoa to continue management strategy 2. Coronary artery disease. Chronic, most recently had aspirin increased from 81 mg daily to 325 mg daily secondary to his recent MCA, but the patient has not tolerated this from a GI standpoint -I discussed with the patient his whether he would like to initiate proton pump inhibitor and resume aspirin 325 as well as his Plavix, but the patient is hesitant given that he has heard about interactions between PPIs and Plavix -I advised the patient that he could continue his aspirin 81 daily as well as Plavix with H2 carla at this time, and seek the guidance of his primary ramp flight attendant before making medication change -continue beta-carla, ARB, statin 3. Diabetes mellitus type 2. Continue home medication, hold Actos given potentially contributing factor to CHF, recommend considering we initiating as an outpatient after this episode has resolved Diet. Regular Prophylaxis. High risk patient, Lovenox for Code. Full Disposition. Anticipated discharge is 03/06, pending resolution of above. I have discussed patient's presentation with Dr. Jose Carlos Boykin, he and I both agree the patient warrants initiation of IV diuretics at this time given that this is a new diagnosis of CHF, and then consideration of oral outpatient management thereafter.
[2018-03-05] MEDS ORDERED: ROSUVASTATIN CALCIUM 10 MG TAB PO SCH (21:00)
[2018-03-05] MEDS ORDERED: MELATONIN 3 MG TAB PO SCH (21:00)
[2018-03-05] MEDS: CARVEDILOL 6.25 MG TAB PO SCH (22:34)
[2018-03-05] MEDS: ACETAMINOPHEN 500 MG TAB PO SCH (22:34)
[2018-03-06] MEDS: CARVEDILOL 6.25 MG TAB PO SCH (08:26)
[2018-03-06] MEDS: metFORMIN SR 500 MG TAB PO SCH ×2 (08:29→12:12)
[2018-03-06] MEDS: ACETAMINOPHEN 500 MG TAB PO SCH (08:29)
[2018-03-06] MEDS ORDERED: CHOLECALCIFEROL VIT D3 1,000 UNITS TAB PO SCH (09:00)
[2018-03-06] MEDS ORDERED: FUROSEMIDE 20 MG/2 ML VIAL IVP SCH (09:00)
[2018-03-06] MEDS ORDERED: Herbals/Supplements -Info Only PO SCH (09:00)
[2018-03-06] MEDS ORDERED: ENOXAPARIN 40 MG/0.4 ML SYR SC SCH (09:00)
[2018-03-06] MEDS ORDERED: VITAMIN B COMPLEX 1 EA CAP/TAB PO SCH (09:00)
[2018-03-06] MEDS ORDERED: CLOPIDOGREL BISULFATE 75 MG TAB PO SCH (09:00)
[2018-03-06] MEDS ORDERED: ASPIRIN EC 81 MG TAB PO SCH (09:00)
[2018-03-06] MEDS ORDERED: PRESERVISION AREDS2 FORMULA EYE VIT 1 EACH PO SCH (09:00)
[2018-03-06] MEDS ORDERED: LOSARTAN POTASSIUM 50 MG TAB PO SCH (09:00)
[2018-03-06] MEDS ORDERED: IPRATROPIUM 0.06% NASAL SPRAY EACHNARE SCH (10:00)
--- NOTE | 2018-03-06 10:38 | PDCARPN ---
Cardiology Progress Note Assessment/Plan: Assessment: Plan: Objective: Vital Signs (8 Hrs) Temp Pulse Resp BP Pulse Ox 03/06/18 08:22 37.1 C 63 15 127/55 H 93 03/06/18 04:00 36.3 C 61 14 125/64 H 93 Intake/Output (24 Hrs) 03/05/18 03/06/18 03/07/18 05:59 05:59 05:59 Intake Total 200 Output Total 900 Balance -700 Intake: Oral (ml) 200 IV Infused (ml) 0 Output: Urine (ml) 900 Toilet 900 Other: Weight 75.9 kg Number of Voids Toilet 1 Result Diagrams: 03/05/18 14:35 03/06/18 03:12 ICD10 Worksheet Patient Problems: Problems Problem Status Onset Pleural effusion Acute Shortness of breath Acute Lumbar stenosis Acute
--- NOTE | 2018-03-06 11:18 | PDCARPN ---
Cardiology Progress Note Chief Complaint: Shortness of breath Assessment/Plan: Assessment: Patient is a 77 y/o male with history of CAD s/p 5V CABG (2004), subsequent PCI after noting 4 of 5 grafts failed to three vessels (2005), DM, and recent left MCA CVA (for which a LINQ was placed), who presents to outpatient cardiology for LINQ interrogation (no arrhythmias were noted per report), but given degree of shortness of breath as well as mild weight gain (about two pounds), recommendations were for patient to proceed to the ER. In the ER, complaints of both dyspnea with minimal ambulation and mild lower extremity edema were voiced. No cardiovascular complaints of chest pain or pressure. No PND or orthopnea. CVA was noted after back surgery which precluded the ability to use thrombolytics, and a "perfusion" treatment with IV fluids and trendelenburg was performed. After about three days, the dysarthria (CVA symptoms) resolved. After the CVA, ARB/HCTZ was stopped, and recommendations were for an increase in the dose of ASA (to 325 mg) as well as resumption of Plavix. Epigastric discomfort lead to a drop in the ASA to 81 mg (but this is being taken three times a day). At discharge, it appears as if the ARB therapy (alone) was resumed, without HCTZ therapy. In the ER last night, he patient was comfortable and relaxed with at bedside. IV diuretics were given after concerns about congestive heart failure signs/symptoms were appreciated (by history, CXR, and labs - specifically BNP elevation). Today, the patient feels well. No cardiovascular complaints were voiced, and sleep overnight was good. Overnight diuresis led to about a 1 kg weight loss Plan: (1) Would continue therapy on ASA (81 mg) and Plavix (75 mg per day) (2) Maintain therapy on Losartan and Coreg for HTN control assistance (3) Recommendations to resume HCTZ therapy given the mild lower extremity edema appreciated (4) Out side hospital echo (reportedly at [facility]) should be incorporated into chart (this test does not need to be repeated at this time) (5) Pre surgery (back) stress testing precludes need to repeat MPI testing at this point in time, especially in the absence of new or varied cardiovascular symptoms (6) Would continue crestor for HLP, and maintain annual assessment of cholesterol and LFT (7) Aggressive DM therapy should continue (8) Would have the patient maintain follow up with Dr. Margareth Ochoa Subjective: No cardiovascular complaints were voiced this morning Reviewed/Discussed With: hospitalist Objective: Vital Signs (8 Hrs) Temp Pulse Resp BP Pulse Ox 03/06/18 08:22 37.1 C 63 15 127/55 H 93 03/06/18 04:00 36.3 C 61 14 125/64 H 93 Intake/Output (24 Hrs) 03/05/18 03/06/18 03/07/18 05:59 05:59 05:59 Intake Total 200 Output Total 900 Balance -700 Intake: Oral (ml) 200 IV Infused (ml) 0 Output: Urine (ml) 900 Toilet 900 Other: Weight 75.9 kg Number of Voids Toilet 1 Result Diagrams: 03/05/18 14:35 03/06/18 03:12 Telemetry: normal sinus rhythm - Physical Exam Constitutional: WDWN, healthy appearing, no apparent distress Eyes: PERRL, EOMI Ears, Nose, Mouth, Throat: moist mucous membranes Cardiovascular: regular rate and rhythm, no murmurs, pulses symmetric bilat, No jugular vein distention Peripheral Pulses: 2+: dorsalis-pedis (R), dorsalis-pedis (L) Respiratory: clear to auscultate bilat, no crackles, no wheezes Gastrointestinal: normoactive bowel sounds Skin: no rashes, no edema Musculoskeletal: no muscular tenderness Neurologic: AAOx3, CN II-XII grossly intact Psychiatric: cooperative, interactive, following commands ICD10 Worksheet Patient Problems: Problems Problem Status Onset Pleural effusion Acute Shortness of breath Acute Lumbar stenosis Acute
[2018-03-06] MEDS ORDERED: CYANO/VITAMIN B12 1000 MCG TAB PO SCH (12:00)
[2018-03-06] MEDS ORDERED: PYRIDOXINE HCL 100 MG TAB PO SCH (12:00)
--- NOTE | 2018-03-06 12:07 | PDDCSUM ---
Discharge Summary Discharge Summary: Admission Date: 03/05/2018 Discharge Date: 03/06/2018 Admission/Discharge Diagnoses: Acute CHF Exacerbation Consults: Cardiology Procedures: CXR Followup: With cardiology, Dr. Ochoa Hospital Course: Mr Harry is a 77 yo male who presents with DESHPANDE, LE edema. CXR was performed which showed b/l pleural effusions. TTE that was done at OSH was not able to be viewed, but patient reports normal EF. Patient was started on Lasix 20 mg BID IV with good urine output and improvement in DESHPANDE and LE edema. Cardiology was consulted who recommended placing patient back on HCTZ which he was taken off during hospitalization for CVA in January. He is to followup with cardiology, Dr. Ochoa. Time spent on discharge >35 minutes with >50% of time spent on patient education and counseling.
[2018-03-06 12:45] VITALS: BP 134/60
[2018-03-07] MEDS ORDERED: HYDROCHLOROTHIAZIDE 25 MG TAB PO SCH (09:00)
== END 2018-03-06 14:00 | disposition home or self-care (01) ==
LOC: F2W 17:59
PROVIDERS: ADMIT Internal Medicine; ATTEND Internal Medicine
DX: I50.33 Acute on chronic diastolic (congestive) heart failure (principal); I25.10 Atherosclerotic heart disease of native coronary artery without angina pectoris; Z95.5 Presence of coronary angioplasty implant and graft; Z86.73 Personal history of transient ischemic attack (TIA), and cerebral infarction without residual deficits
CPT/HCPCS: 71046; 93005; 96372; 96374; 96376; 99285; G0378; J1650; J1940; 84484-PO

== ENCOUNTER 2018-09-06 10:22 | Emergency (ER) | payer OTHER, MEDICARE ==
--- NOTE | 2018-09-06 10:42 | EDPHY ---
H & P Time Seen by Provider: 09/06/18 10:42 HPI/ROS: CHIEF COMPLAINT: Irregular heart rate HISTORY OF PRESENT ILLNESS: 78-year-old man has a history of atrial fibrillation and is on Eliquis. Today he noticed when he was using his pulse oximeter in the morning that his heart rate was going up and down quite rapidly. With cycle between 60 and 90. Thought it was irregular. He denies chest pain shortness of breath dizziness lightheadedness syncope or near- syncope. No symptoms of bleeding. No headache. No neurologic complaints. REVIEW OF SYSTEMS: Eye: no change in vision ENT: no sore throat Cardiac: HPI Pulmonary: no cough or SOB Abdomen: no vomiting, diarrhea, abdominal pain Musculoskeletal: no back pain Skin: no rash Neuro: no headache Constitutional: no fever : no urinary symptoms A comprehensive 10 point review of systems is otherwise negative aside from elements mentioned in the history of present illness. PAST MEDICAL HISTORY: Atrial fibrillation on Eliquis, coronary disease with stenting, stroke, hypertension, diabetes Social history: [facility] patient, nonsmoker General Appearance: Alert and conversant, cooperative. Eyes: No scleral icterus. ENT, Mouth: Normal mucous membranes. Respiratory: Normal respiratory effort, breath sounds equal, lungs are clear to auscultation. Cardiovascular: Irregular rate and rhythm without murmur. Gastrointestinal: Abdomen is soft and non tender. Neurological: Alert, face symmetric, normal motor and sensory in extremities. Skin: Warm and dry, no rashes. Musculoskeletal: No peripheral edema. Psychiatric: Not agitated. Emergency Department course/MDM: 1133: Discussed with Dr. Bustamante. We discussed telling the patient he should continue on his current medication regimen. He appears to be rate controlled does not have ischemic symptoms. He is anticoagulated. She is in agreement. Does not appear to have evidence today of malignant dysrhythmia or ventricular dysrhythmia, acute coronary syndrome or ischemia. Smoking Status: Never smoked Constitutional: Initial Vital Signs Temperature (C) 36.5 C 09/06/18 10:27 Heart Rate 85 09/06/18 10:27 Respiratory Rate 18 09/06/18 10:27 Blood Pressure 130/64 H 09/06/18 10:27 O2 Sat (%) 96 09/06/18 10:27 O2 Delivery Mode Room Air Allergies/Adverse Reactions: amoxicillin Allergy (Verified 09/06/18 10:25) Other-Enter Comments NSAIDS (Non-Steroidal Anti-Inflamma Allergy (Verified 09/06/18 10:25) Other-Enter Comments Home Medications: Medication Instructions Recorded Androgel 1.62% 1 nghia TP DAILY 01/29/18 C,E,Zinc,Copper 11/Qytbe4p/Lut 1 each PO DAILY 01/29/18 [Ocuvite Adult 50 Plus Softgel] Carvedilol [Coreg] 12.5 mg PO BID 01/29/18 Cholecalciferol Vit D3 [Vitamin D3 1,000 units PO DAILY 01/29/18 (*)] Cyanocobalamin [Vitamin B12 (*)] 1,000 mcg PO DAILY@01/29/18 Herbals/Supplements -Info Only 1 ea PO DAILY 01/29/18 Ipratropium 0.06% Nasal [Atrovent 1 sprays EACHNARE DAILY@01/29/18 0.06% Nasal] Melatonin [Melatonin 3 MG (*)] 3 mg PO DAILY@01/29/18 Pyridoxine HCl [Vitamin B-6 100 mg 100 mg PO DAILY@01/29/18 (*)] Rosuvastatin Calcium [Crestor] 10 mg PO HS 01/29/18 Vitamin B Complex [Vitamin B 1 each PO DAILY 01/29/18 Complex (OTC)] amLODIPine BESYLATE [Norvasc 2.5 2.5 mg PO HS 01/29/18 mg (*)] metFORMIN SR [Glucophage XR 500 mg 500 mg PO QID 01/29/18 (*)] Acetaminophen [Tylenol ES 500 mg 1,000 mg PO Q8HRS tab 01/30/18 (*)] Aspirin EC [Aspirin EC 81 mg (*)] 81 mg PO TID 02/19/18 Clopidogrel Bisulfate [Clopidogrel] 75 mg PO DAILY 02/19/18 Losartan Potassium 100 mg PO DAILY 03/05/18 Hydrochlorothiazide [HCTZ (*)] 12.5 mg PO DAILY #30 tab 03/06/18 Eliquis 09/06/18 Plavix 09/06/18 Medical Decision Making - Diagnostics EKG Interpretation: 12-lead EKG interpreted by me; official reading is in computer system. My interpretation is atrial fibrillation rate 79 with nonspecific lateral T-wave flattening. Departure - Departure Disposition: Home, Routine, Self-Care Clinical Impression: Atrial fibrillation Qualifiers: Atrial fibrillation type: unspecified Qualified Code(s): I48.91 - Unspecified atrial fibrillation Condition: Good Instructions: A-fib (Atrial Fibrillation) (ED) Additional Instructions: Continue medications as prescribed. Referrals: Tim York MD [Primary Care Provider] - As per Instructions Adrian Ochoa MD [Medical Doctor] - As per Instructions
--- NOTE | 2018-09-06 10:52 | CPEKG ---
Test Reason : OPEN Blood Pressure : / mmHG Vent. Rate : 079 BPM Atrial Rate : 000 BPM P-R Int : 160 ms QRS Dur : 080 ms QT Int : 341 ms P-R-T Axes : 000 -06 148 degrees QTc Int : 391 ms Atrial fibrillation Low voltage, extremity leads Abnormal T, consider ischemia, lateral leads Confirmed by Alli Kate ([id number]) on 09/06/2018 10:52:16 AM Referred By: PHYSICIAN ED Confirmed By:Alli Kate
[2018-09-06 11:56] VITALS: BP 110/63
== END 2018-09-06 11:58 | disposition home or self-care (01) ==
DX: I48.91 Unspecified atrial fibrillation (principal); I10 Essential (primary) hypertension; E11.9 Type 2 diabetes mellitus without complications; Z79.4 Long term (current) use of insulin; Z86.73 Personal history of transient ischemic attack (TIA), and cerebral infarction without residual deficits; Z79.01 Long term (current) use of anticoagulants; Z95.5 Presence of coronary angioplasty implant and graft